=== PATIENT | female | born 1965 | race Two or more races ===

== ENCOUNTER 2023-07-14 17:31 | Emergency (ER) | payer MEDICAID ==
[~2023-07-14] VITALS: Ht 152.4 cm; Wt 55.3 kg
[2023-07-14 17:33] VITALS: BP 146/96; PULSE 86; RESP 16; TEMP 98.1; O2SAT 97
[2023-07-14] MEDS ORDERED: IPRATROPIUM 0.02% 0.5 MG/2.5 ML NEBU INH ONE (17:50)
[2023-07-14] MEDS ORDERED: methylPREDNISolone SS 125 MG/2 ML VIAL IVP ONE (17:50)
[2023-07-14] MEDS ORDERED: ALBUTEROL 0.083% 2.5 MG/3 ML NEBU INH ONE (17:50)
[2023-07-14] MEDS ORDERED: MAG SULF 2000 MG/WATER PREMIX 50 ML IV ONE (17:50)
[2023-07-14 18:15] VITALS: PULSE 87; RESP 20; O2SAT 95
[2023-07-14 18:44] LABS: BASOPHILS % (AUTO) 0.6 % (0.0-2.0); EOSINOPHILS # (AUTO) 0.1 K/uL (0-0.4); EOSINOPHILS % (AUTO) 1.7 % (0.0-4.0); HEMATOCRIT 44.5 % (36-48); HEMOGLOBIN 14.4 g/dL (12.0-16.0); LYMPHOCYTES # (AUTO) 1.3 K/uL (2.5-16.5); LYMPHOCYTES % (AUTO) 29.2 % (20.5-51.1); MEAN CORPUSCULAR HEMOGLOBIN 28 pg (27-31); MEAN CORPUSCULAR HGB CONC 32 g/dL (33-37); MEAN CORPUSCULAR VOLUME 87.2 fL (80-94); MONOCYTES # (AUTO) 0.2 K/uL (0.8-1.0); MONOCYTES % (AUTO) 4.9 % (1.7-9.3); NEUTROPHILS # (AUTO) 2.8 K/uL (1.8-7.7); NEUTROPHILS % (AUTO) 63.6 % (42.2-75.2); PLATELET COUNT (AUTO) 192 K/uL (140-450); RED BLOOD CELL COUNT(AUTO) 5.11 MIL/uL (4.20-5.40); RED CELL DISTRIBUTION WIDTH 13.7 % (11.6-13.7); WHITE BLOOD COUNT (AUTO) 4.4 K/uL (4.8-10.8)
[2023-07-14 18:55] LABS: ANION GAP 11.2 (8-16); CALCIUM 8.4 mg/dL (8.5-10.1); CARBON DIOXIDE 27.2 mmol/L (21-32); POTASSIUM 3.4 mmol/L (3.5-5.1)
[2023-07-14] MEDS ORDERED: methylPREDNISolone SS 125 MG/2 ML VIAL ONE (19:41)
[2023-07-14] MEDS ORDERED: PRED20TA5 PO ×2 (20:18→21:07)
[2023-07-14 21:07] VITALS: BP 119/73; PULSE 88; RESP 24; O2SAT 98
== END 2023-07-14 21:08 | disposition home or self-care (01) ==
LOC: EDBD 17:31 → MED 17:31
DX: J45.901 Unspecified asthma with (acute) exacerbation (principal); Z79.899 Other long term (current) drug therapy
CPT/HCPCS: 36415; 71045; 80048; 84484; 85025; 93005; 94640; 96365; 96366; 96375; 99291; J2930; J3475; J7613; J7644